=== PATIENT | female | born 1955 | race Caucasian/White ===

== ENCOUNTER → 2017-12-26 | Outpatient (CLI) | payer OTHER | END | disposition home or self-care (01) | LOC: HKI 10:16 | DX: M17.12 Unilateral primary osteoarthritis, left knee (principal); M25.562 Pain in left knee; E11.8 Type 2 diabetes mellitus with unspecified complications; I10 Essential (primary) hypertension; E03.9 Hypothyroidism, unspecified; J44.9 Chronic obstructive pulmonary disease, unspecified; J45.909 Unspecified asthma, uncomplicated; F32.9 Major depressive disorder, single episode, unspecified | CPT/HCPCS: 73564; 73564-LT ==

== ENCOUNTER → 2018-04-17 | Outpatient (CLI) | payer OTHER | END | disposition home or self-care (01) | LOC: HKI 10:10 | DX: Z01.818 Encounter for other preprocedural examination (principal) | CPT/HCPCS: Z7500 ==

== ENCOUNTER 2018-04-19 09:54 | Inpatient (IN) | payer OTHER ==
[~2018-04-19 09:54] MED LIST: ETOMIDATE 20 MG INJ; KNEE PAIN COCKTAIL (CEFUROXIME) INJ
[2018-04-19] MEDS ORDERED: DIPHENHYDRAMINE 50 MG INJ IV (10:30)
[2018-04-19] MEDS ORDERED: BISACODYL 10 MG SUPP PR (10:30)
[2018-04-19] MEDS ORDERED: MAGNESIUM HYDROXIDE 30ML CUP PO (10:30)
[2018-04-19] MEDS ORDERED: BETHANECHOL 25 MG TAB PO (10:30)
[2018-04-19] MEDS ORDERED: NALOXONE (0.4 MG/ML) INJ IV (10:30)
[2018-04-19] MEDS ORDERED: NA PHOSPHATE/BIPHOS 133 ML ENEMA PR (10:30)
[2018-04-19] MEDS ORDERED: POLYMYXIN/BACITRACIN 1L IRRIG (10:31)
[2018-04-19] MEDS: LACTATED RINGER'S 1,000 ML IV* (12:06)
[2018-04-19] MEDS: TRANEXAMIC ACID 1,000 MG in NS 100 ML INTRA-OP X1 IVPB (12:30)
[2018-04-19] MEDS ORDERED: MIDAZOLAM 1 MG/ML 2 ML INJ (13:19)
[2018-04-19] MEDS ORDERED: morphine SULFATE/PF (10 MG/10 ML) INJ (13:20)
[2018-04-19] MEDS: TRANEXAMIC ACID 1,000 MG in NS 100 ML PRE-OP X1 IVPB (13:21)
[2018-04-19] MEDS: CEFAZOLIN 1 GM/50 ML (PMX) 50 ML IVPB ×3 (13:25→22:12)
[2018-04-19] MEDS: POLYMYXIN B 500000 UNIT INJ (14:50)
[2018-04-19] MEDS: BACITRACIN 50000 UNITS INJ (14:50)
[2018-04-19] MEDS: KNEE PAIN COCKTAIL (CEFUROXIME) INJ (14:51)
[2018-04-19] MEDS ORDERED: CEFAZOLIN 1 GM INJ (15:19)
[2018-04-19] MEDS ORDERED: PROPOFOL 20 ML (15:19)
[2018-04-19] MEDS ORDERED: LIDOCAINE 2% (SDV) 5 ML INJ (15:19)
[2018-04-19] MEDS ORDERED: ONDANSETRON 4 MG INJ (15:20)
[2018-04-19] MEDS ORDERED: HYDROmorphONE 1 MG/5 ML IV SYRINGE IV ×2 (16:00)
[2018-04-19] MEDS ORDERED: MEPERIDINE 25 MG INJ IV (16:00)
[2018-04-19] MEDS ORDERED: FENTAnyl 50 MCG/ML VIAL IV (16:00)
[2018-04-19] MEDS ORDERED: ONDANSETRON 4 MG INJ IV (16:00)
[2018-04-19] MEDS: ALBUTEROL HFA 8 GM INHALER INH ×2 (16:00→22:04)
[2018-04-19] MEDS ORDERED: METOCLOPRAMIDE 10 MG INJ IV (16:00)
[2018-04-19] MEDS: ONDANSETRON 4 MG INJ IV ×3 (16:02→22:26)
[2018-04-19] MEDS: DOCUSATE SODIUM 100 MG CAP PO (16:03)
[2018-04-19] MEDS: ASPIRIN 81 MG TAB PO ×2 (16:03→22:03)
[2018-04-19] MEDS: SOD CHLORIDE 0.9% 1,000 ML IV ×2 (16:05→22:46)
[2018-04-19] MEDS ORDERED: DIPHENHYDRAMINE 25 MG CAP (17:13)
[2018-04-19] MEDS: DIPHENHYDRAMINE 50 MG INJ IV (17:15)
[2018-04-19] MEDS ORDERED: GLUCOSE GEL 15 GRAM TUBE PO ×2 (17:30)
[2018-04-19] MEDS ORDERED: GLUCAGON 1 MG INJ IM (17:30)
[2018-04-19] MEDS ORDERED: DEXTROSE 50% 50 ML SYRINGE IV ×2 (17:30)
[2018-04-19] MEDS ORDERED: GLUCOSE GEL 15 GRAM TUBE BUCCAL (17:30)
[2018-04-19] MEDS: INSULIN ASPART [NOVOLOG] 3 ML PEN SC ×3 (17:55→21:00)
[2018-04-19] MEDS: [UNRECOGNIZED DRUG - REMARK] XX (18:00)
[2018-04-19] MEDS: metFORMIN 500 MG TAB PO (18:48)
[2018-04-19] MEDS: OXYBUTYNIN 5 MG TAB PO (21:00)
[2018-04-19] MEDS: LOSARTAN 25 MG TAB PO (21:00)
[2018-04-19] MEDS: GABAPENTIN 100 MG CAP PO (22:03)
[2018-04-19] MEDS: ATORVASTATIN 20 MG TAB PO (22:03)
[2018-04-19] MEDS: INSULIN GLARGINE [LANTus] (100 UNITS/ML) SYG SC (22:06)
[2018-04-20] MEDS: ALBUTEROL HFA 8 GM INHALER INH ×6 (01:00→21:45)
[2018-04-20] MEDS: [UNRECOGNIZED DRUG - REMARK] XX ×2 (01:47→10:00)
[2018-04-20] MEDS: SOD CHLORIDE 0.9% 1,000 ML IV ×3 (03:09→23:46)
[2018-04-20] MEDS: ONDANSETRON 4 MG INJ IV (04:26)
[2018-04-20 05:05] LABS: ADD MAN DIFF? NO
[2018-04-20 05:16] LABS: BASOPHILS % 0.1 % (0.0-2.0); EOSINOPHILS # 0.2 10^3/ul (0.0-0.5); EOSINOPHILS % 2.8 % (0.0-7.0); HEMATOCRIT 34.4 % (37.0-47.0); HEMOGLOBIN 11.1 g/dl (12.0-16.0); LYMPHOCYTES # 0.8 10^3/ul (0.8-2.9); LYMPHOCYTES % 11.4 % (15.0-51.0); MEAN CORPUSCULAR HGB CONC 32.3 g/dl (32.0-37.0); MEAN CORPUSCULAR VOLUME 86.6 fl (82.0-101.0); MEAN PLATELET VOLUME 10.8 fl (7.4-10.4); MONOCYTE # 0.5 10^3/ul (0.3-0.9); MONOCYTES % 7.4 % (0.0-11.0); NEUTROPHIL # 5.6 10^3/ul (1.6-7.5); PLATELET COUNT 168 10^3/UL (140-415); RED BLOOD COUNT 3.97 10^6/ul (4.20-5.40); RED CELL DISTRIBUTION WIDTH 12.9 % (11.5-14.5)
[2018-04-20 05:16] LABS: WHITE BLOOD COUNT 7.1 10^3/ul (4.8-10.8)
[2018-04-20 05:28] LABS: CHOLESTEROL 107 mg/dl (100-200)
[2018-04-20 05:28] LABS: CHOL/HDL RATIO 2.6 RATIO; HDL CHOLESTEROL 40 mg/dl (35-98); LDL CHOLESTEROL,CALCULATED 51 mg/dl; TRIGLYCERIDES 80 mg/dl (0-149)
[2018-04-20 05:34] LABS: ANION GAP 7 (5-13); BLOOD UREA NITROGEN 14 mg/dl (7-20); CALCIUM 8.1 mg/dl (8.4-10.2); CARBON DIOXIDE 29 mmol/L (21-31); CHLORIDE 103 mmol/L (97-110); CREATININE 0.61 mg/dl (0.44-1.00); Estimated GFR > 60 mL/min (>60); GLUCOSE 169 mg/dl (70-220); SODIUM 139 mmol/L (135-144)
[2018-04-20 05:48] LABS: HEMOGLOBIN A1C 10.3 % (0-5.9)
[2018-04-20] MEDS: CEFAZOLIN 1 GM/50 ML (PMX) 50 ML IVPB ×2 (06:31→13:27)
[2018-04-20] MEDS: LEVOTHYROXINE 175 MCG TAB PO ×2 (07:00→10:25)
[2018-04-20] MEDS: oxyCODONE 5 MG TAB PO ×4 (07:39→18:12)
[2018-04-20] MEDS: INSULIN ASPART [NOVOLOG] 3 ML PEN SC ×7 (07:50→21:00)
[2018-04-20] MEDS ORDERED: NON-FORMULARY/PATIENT OWN MED (Tiotropium Br/Olodaterol HCl (Stiolto Respimat Inhal Spray) XX (09:00)
[2018-04-20] MEDS: GABAPENTIN 100 MG CAP PO ×2 (09:15→21:41)
[2018-04-20] MEDS: FERROUS FUMARATE (SR) TAB PO ×2 (09:16→21:41)
[2018-04-20] MEDS: CELECOXIB 200 MG CAP PO ×2 (09:16→21:41)
[2018-04-20] MEDS: OXYBUTYNIN 5 MG TAB PO ×2 (09:16→21:41)
[2018-04-20] MEDS: DOCUSATE SODIUM 100 MG CAP PO ×2 (09:16→21:41)
[2018-04-20] MEDS: ASPIRIN 81 MG TAB PO ×2 (09:16→21:40)
[2018-04-20] MEDS: FLUOXETINE 20 MG CAP PO (09:16)
[2018-04-20] MEDS: HYDROCHLOROTHIAZIDE 25 MG TAB PO (09:17)
[2018-04-20] MEDS: metFORMIN 500 MG TAB PO ×2 (09:17→18:07)
[2018-04-20] MEDS: LOSARTAN 25 MG TAB PO ×2 (09:17→21:00)
[2018-04-20] MEDS: TIOTROPIUM 18 MCG CAPSULE INHA DEV INH (15:30)
[2018-04-20] MEDS: SENNA/DOCUSATE NA (8.6MG/50MG) TAB PO (18:08)
[2018-04-20] MEDS: ATORVASTATIN 20 MG TAB PO (21:40)
[2018-04-20] MEDS: INSULIN GLARGINE [LANTus] (100 UNITS/ML) SYG SC (21:44)
[2018-04-21] MEDS: ALBUTEROL HFA 8 GM INHALER INH ×5 (01:00→17:34)
[2018-04-21 05:34] LABS: ADD MAN DIFF? NO
[2018-04-21 05:39] LABS: BASOPHILS % 0.2 % (0.0-2.0); EOSINOPHILS # 0.2 10^3/ul (0.0-0.5); EOSINOPHILS % 1.6 % (0.0-7.0); HEMATOCRIT 34.3 % (37.0-47.0); HEMOGLOBIN 11.1 g/dl (12.0-16.0); LYMPHOCYTES # 0.7 10^3/ul (0.8-2.9); MEAN CORPUSCULAR HEMOGLOBIN 28.2 pg (29.0-33.0); MEAN CORPUSCULAR HGB CONC 32.4 g/dl (32.0-37.0); MEAN CORPUSCULAR VOLUME 87.3 fl (82.0-101.0); MEAN PLATELET VOLUME 10.9 fl (7.4-10.4); MONOCYTE # 0.9 10^3/ul (0.3-0.9); NEUTROPHIL # 7.3 10^3/ul (1.6-7.5); NEUTROPHILS % 79.8 % (39.0-77.0); PLATELET COUNT 167 10^3/UL (140-415); RED BLOOD COUNT 3.93 10^6/ul (4.20-5.40); RED CELL DISTRIBUTION WIDTH 13.2 % (11.5-14.5)
[2018-04-21 05:39] LABS: WHITE BLOOD COUNT 9.1 10^3/ul (4.8-10.8)
[2018-04-21] MEDS: PANTOPRAZOLE (EC) 40 MG TAB PO (06:15)
[2018-04-21] MEDS: LEVOTHYROXINE 175 MCG TAB PO (06:16)
[2018-04-21 06:40] LABS: ANION GAP 7 (5-13); BLOOD UREA NITROGEN 15 mg/dl (7-20); CALCIUM 8.5 mg/dl (8.4-10.2); CARBON DIOXIDE 30 mmol/L (21-31); CHLORIDE 102 mmol/L (97-110); CREATININE 0.66 mg/dl (0.44-1.00); Estimated GFR > 60 mL/min (>60); GLUCOSE 144 mg/dl (70-220); POTASSIUM 4.1 mmol/L (3.5-5.1); SODIUM 139 mmol/L (135-144)
[2018-04-21] MEDS: metFORMIN 500 MG TAB PO ×2 (08:51→17:34)
[2018-04-21] MEDS: FERROUS FUMARATE (SR) TAB PO (08:52)
[2018-04-21] MEDS: CELECOXIB 200 MG CAP PO (08:52)
[2018-04-21] MEDS: FLUOXETINE 20 MG CAP PO (08:52)
[2018-04-21] MEDS: ASPIRIN 81 MG TAB PO (08:52)
[2018-04-21] MEDS: oxyCODONE 5 MG TAB PO ×2 (08:52→15:54)
[2018-04-21] MEDS: TIOTROPIUM 18 MCG CAPSULE INHA DEV INH (08:53)
[2018-04-21] MEDS: OXYBUTYNIN 5 MG TAB PO (08:53)
[2018-04-21] MEDS: DOCUSATE SODIUM 100 MG CAP PO (08:53)
[2018-04-21] MEDS: GABAPENTIN 100 MG CAP PO (08:53)
[2018-04-21] MEDS: HYDROCHLOROTHIAZIDE 25 MG TAB PO (08:54)
[2018-04-21] MEDS: LOSARTAN 25 MG TAB PO (08:54)
[2018-04-21] MEDS: ARFORMOTEROL TARTRATE 15MCG/2 ML AMP INH ×2 (09:00)
[2018-04-21] MEDS: INSULIN ASPART [NOVOLOG] 3 ML PEN SC ×6 (09:01→17:38)
[2018-04-21] MEDS: SOD CHLORIDE 0.9% 1,000 ML IV (11:58)
== END 2018-04-21 19:45 | disposition home health service (06) | DRG 470 ==
LOC: REC 09:54 → MS1 17:55
PROVIDERS: Orthopaedic Surgery Adult Reconstructive Orthopaedic Surgery
PROC: 0SRD069 Replacement of Left Knee Joint with Oxidized Zirconium on Polyethylene Synthetic Substitute, Cemented, Open Approach (ICD-10-PCS; principal; 2018-04-19 13:00)
DX: M17.12 Unilateral primary osteoarthritis, left knee (principal); E78.5 Hyperlipidemia, unspecified; I10 Essential (primary) hypertension; E11.9 Type 2 diabetes mellitus without complications; J44.9 Chronic obstructive pulmonary disease, unspecified; G47.30 Sleep apnea, unspecified; K21.9 Gastro-esophageal reflux disease without esophagitis; E66.9 Obesity, unspecified; E03.9 Hypothyroidism, unspecified; Z79.4 Long term (current) use of insulin; Z68.36 Body mass index [BMI] 36.0-36.9, adult
CPT/HCPCS: 73560; 80048; 80061; 82962; 83036; 85025; 86850; 86900; 86901; 88304; 88311; 94664; 97110; 97116; 97162; 97166; 97530

== ENCOUNTER → 2018-08-22 | Outpatient (CLI) | payer OTHER | END | disposition home or self-care (01) | LOC: HKI 14:11 | DX: Z09 Encounter for follow-up examination after completed treatment for conditions other than malignant neoplasm (principal); Z96.652 Presence of left artificial knee joint | CPT/HCPCS: 73562; 73562-LT ==